=== PATIENT | male | born 1945 | race Caucasian/White ===

== ENCOUNTER 2025-05-07 13:37 | Emergency (ER) | payer MEDICARE ==
[~2025-05-07] VITALS: Ht 180.3 cm; Wt 107.8 kg
[2025-05-07] MEDS ORDERED: MORPHINE SULFATE 4 MG/ML VIAL IV ONE (14:00)
[2025-05-07 14:08] LABS: BASOPHILS 0.2 % (0.2-1.2); EOSINOPHILS 1.0 % (0.8-7.0); LYMPHOCYTES 16.1 % (21.8-53.1); MCH 34.5 PG (25.7-32.2); MCHC 36.1 g/dL (32.3-36.5); MCV 95.5 fL (79.0-92.2); MONOCYTES 8.7 % (5.3-12.2); NEUTROPHILS 73.6 % (34.0-67.9); RBC 4.26 M/uL (4.63-6.08)
[2025-05-07 14:23] LABS: ALT (SGPT) 18.0 U/L (14-59); AST (SGOT) 18.0 U/L (15-37); GLOMERULAR FILTRATION RATE,EST 60.0 mL/min (>60); PROTEIN, TOTAL 7.0 g/dL (6.4-8.2); UREA NITROGEN 17.0 mg/dL (7-18)
[2025-05-07] MEDS ORDERED: AMOX TR-K CLV1 EAC1 PO ×2 (15:18→16:01)
[2025-05-07 15:30] VITALS: BP 155/80
[2025-05-07] MEDS ORDERED: AMOXICILLIN/CLAVULANATE K 875 MG TAB PO ONE (15:30)
== END 2025-05-07 15:31 | disposition home or self-care (01) ==
LOC: ED 13:37
PROVIDERS: Emergency Medicine
DX: K11.21 Acute sialoadenitis (principal)
CPT/HCPCS: 36415; 70491; 80053; 85025; 96374; 96375; 99284-25; J2270; J2405; Q9967